=== PATIENT | female | born 1985 | race Caucasian/White ===

== ENCOUNTER 2019-11-10 16:11 | Emergency (ER) | payer BC, OTHER ==
[2019-11-10] MEDS ORDERED: DIAZEPAM 5 MG TABLET ONE (17:19)
[2019-11-10] MEDS ORDERED: dexAMETHasone 10 MG/ML VIAL ONE (17:19)
[2019-11-10] MEDS ORDERED: KETOROLAC 30 MG/ML INJ ONE (17:20)
--- NOTE | 2019-11-10 18:03 | ER ---
Nurse's Notes [facility] Name: Rossana Martin Age: 34 yrs Sex: Female : 1985 Arrival Date: 11/10/2019 Time: 16:15 Bed 27 Private MD: Andrew Johansen Diagnosis: Strain of muscle and tendon of back wall of thorax Presentation: 11/09 16:33 Chief complaint: Patient states: Began Monday with slight neck pain. Tried to work ll1 throughout the day. Severe pain to left shoulder started Monday. 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 No trauma or falls. Coronavirus screen: The patient has NOT traveled to a country currently being monitored by the [facility] within the last 14 days. Proceed with normal triage procedures. Ebola Screen: Patient denies travel to an Ebola-affected area in the 21 days before illness onset. Initial Sepsis Screen: Does the patient meet any 2 criteria? No. Patient's initial sepsis screen is negative. Does the patient have a suspected source of infection? No. Patient's initial sepsis screen is negative. Risk Assessment: Do you want to hurt yourself or someone else? Patient reports no desire to harm self or others. 16:33 Method Of Arrival: Ambulatory ll1 16:33 Acuity: KAT 4 ll1 16:38 Onset of symptoms was November 08, 2019. ll1 Triage Assessment: 16:37 General: Appears uncomfortable, Behavior is calm, cooperative. Pain: Complains of pain ll1 in right shoulder Pain currently is 8 out of 10 on a pain scale. Quality of pain is described as aching, Pain began 2-3 days ago. Is continuous. Neuro: No deficits noted. Cardiovascular: No deficits noted. Respiratory: No deficits noted. Musculoskeletal: Reports pain in right shoulder. 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 - Social history:: Smoking status: Patient denies any tobacco usage or history of. Patient/guardian denies using alcohol, street drugs, tobacco products. Screenin:36 Abuse screen: Denies threats or abuse. Nutritional screening: No deficits noted. ll1 Tuberculosis screening: No symptoms or risk factors identified. Fall Risk None identified. Total Carrillo Fall Scale indicates No Risk (0-24 pts). Assessment: 16:35 General: Appears uncomfortable, Behavior is calm, cooperative, see triage assessment ll1 for further details.. Pain: Complains of pain in right shoulder Pain currently is 8 out of 10 on a pain scale. Neuro: No deficits noted. Cardiovascular: No deficits noted. Respiratory: No deficits noted. Musculoskeletal: Circulation, motion, and sensation intact. Capillary refill < 3 seconds, Range of motion: limited in right shoulder Tenderness present in right shoulder Reports pain in right shoulder. Injury Description: none, repeated use of upper extremities at work. 17:35 Reassessment: No changes from previously documented assessment. Patient and/or family ll1 updated on plan of care and expected duration. Pain level reassessed. Patient is alert, oriented x 3, equal unlabored respirations, skin warm/dry/pink. 18:30 Reassessment: No changes from previously documented assessment. Patient and/or family ll1 updated on plan of care and expected duration. Pain level reassessed. Patient is alert, oriented x 3, equal unlabored respirations, skin warm/dry/pink. Vital Signs: 16:33 BP 155 / 98; Pulse 84; Resp 16; Temp 97.8(O); Pulse Ox 100% ; lt1 16:33 Pain 8/10; ll1 17:23 BP 126 / 77; Pulse 82; Resp 17; Pulse Ox 100% ; Pain 8/10; ll1 18:34 BP 125 / 75; Pulse 75; Resp 17; Temp 98.0; Pulse Ox 100% ; Pain 6/10; ll1 ED Course: 16:15 Patient arrived in ED. rg4 16:15 Andrew Johansen MD is Private Physician. rg4 16:28 J[facility] Hopkins NP is [facility]. pm1 16:28 Alfonso Morton MD is Attending Physician. pm1 16:28 Alysha Hood RN is Primary Nurse. ll1 16:34 Triage completed. ll1 16:38 Arm band placed on Patient placed in an exam room. ll1 16:38 Patient has correct armband on for positive identification. Bed in low position. Call ll1 light in reach. Side rails up X 1. 18:46 No provider procedures requiring assistance completed. Patient did not have IV access ll1 during this emergency room visit. Administered Medications: 17:22 Drug: Valium 5 mg Route: PO; ll1 18:20 Follow up: Response: No adverse reaction; Pain is decreased ll1 17:22 Drug: Decadron 10 mg Route: IM; Site: left vastus lateralis; ll1 18:20 Follow up: Response: No adverse reaction; Pain is decreased; RASS: Alert and Calm (0) ll1 17:22 Drug: TORadol 60 mg Route: IM; Site: right vastus lateralis; ll1 18:20 Follow up: Response: No adverse reaction; Pain is decreased; RASS: Alert and Calm (0) 1 18:33 Drug: Tylenol #3 (300 mg-30 mg) 1 tablet {Note: RASS 0.} Route: PO; ll1 18:34 Follow up: Response: No adverse reaction; RASS: Alert and Calm (0) 1 Outcome: 18:03 Discharge ordered by MD. pm1 18:35 Discharged to home ambulatory, with family. ll1 18:35 Condition: stable 18:35 Discharge instructions given to patient, Instructed on discharge instructions, follow up and referral plans. medication usage, Demonstrated understanding of instructions, follow-up care, medications, Prescriptions given X 3. 18:47 Patient left the ED. 1 Signatures: Jas Hopkins NP EDUCATION FACULTY MEMBER pm1 Alba Mccarty4 Deonna Barr lt1 Alysha Hood, RN RN 1
--- NOTE | 2019-11-10 18:03 | EDPHYS ---
Physician Documentation [facility] Name: Rossana Martin Age: 34 yrs Sex: Female : 1985 Arrival Date: 11/10/2019 Time: 16:15 Bed 27 Private MD: Andrew Johansen ED Physician Alfonso Morton HPI: 11/09 16:39 This 34 yrs old Female presents to ER via Ambulatory with complaints of Right pm1 Arm Pain, Right Shoulder Pain. 16:39 The patient or guardian complains of pain, that is acute. pm1 16:39 The complaints affect the Right trapezius and posterior aspect of right shoulder. 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 Onset: The symptoms/episode began/occurred 2 day(s) ago. Modifying factors: The symptoms are alleviated by remaining still, the symptoms are aggravated by movement. Associated signs and symptoms: Pertinent negatives: decreased range of motion, deformity, fever, nausea, numbness, tingling, vomiting. Severity of symptoms: in the emergency department the symptoms are actually worse. The patient has not experienced similar symptoms in the past. 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 - Social history:: Smoking status: Patient denies any tobacco usage or history of. Patient/guardian denies using alcohol, street drugs, tobacco products. ROS: 16:39 Constitutional: Negative for fever, chills, and weight loss, Cardiovascular: Negative pm1 for chest pain, palpitations, and edema, Respiratory: Negative for shortness of breath, cough, wheezing, and pleuritic chest pain. 16:39 Abdomen/GI: Negative for abdominal pain, nausea, vomiting, diarrhea, and constipation. 16:39 MS/Extremity: Negative for injury and deformity, Skin: Negative for injury, rash, and discoloration, Neuro: Negative for headache, weakness, numbness, tingling, and seizure. 16:39 Neck: Positive for pain with movement, tenderness, of the right trapezius, Negative for bony tenderness. 16:39 Back: Positive for pain with movement, of the right trapezius, right scapular area and right subscapular area. Exam: 16:39 Constitutional: This is a well developed, well nourished patient who is awake, alert, pm1 and in no acute distress. Head/Face: Normocephalic, atraumatic. 16:39 Chest/axilla: Normal chest wall appearance and motion. Nontender with no deformity. No lesions are appreciated. Cardiovascular: Regular rate and rhythm with a normal S1 and S2. No gallops, murmurs, or rubs. Normal PMI, no JVD. No pulse deficits. Respiratory: Lungs have equal breath sounds bilaterally, clear to auscultation and percussion. No rales, rhonchi or wheezes noted. No increased work of breathing, no retractions or nasal flaring. Abdomen/GI: Soft, non-tender, with normal bowel sounds. No distension or tympany. No guarding or rebound. No evidence of tenderness throughout. 16:39 Skin: Warm, dry with normal turgor. Normal color with no rashes, no lesions, and no evidence of cellulitis. MS/ Extremity: Pulses equal, no cyanosis. Neurovascular intact. Full, normal range of motion. 16:39 Neck: External neck: is normal, C-spine: appears grossly normal, vertebral tenderness, is not appreciated, ROM/movement: Meningeal signs: are not present, Kernig's sign is negative, Brudzinski's sign is negative. 16:39 Back: muscle spasm, is appreciated in the right trapezius, right scapular area and right subscapular area. 16:39 Neuro: Orientation: is normal, Mentation: is normal, Motor: is normal, moves all fours, Sensation: is normal, no obvious gross deficits. Vital Signs: 16:33 BP 155 / 98; Pulse 84; Resp 16; Temp 97.8(O); Pulse Ox 100% ; lt1 16:33 Pain 8/10; ll1 17:23 BP 126 / 77; Pulse 82; Resp 17; Pulse Ox 100% ; Pain 8/10; ll1 18:34 BP 125 / 75; Pulse 75; Resp 17; Temp 98.0; Pulse Ox 100% ; Pain 6/10; ll1 MDM: 16:28 Patient medically screened. pm1 18:02 Data reviewed: vital signs. Data interpreted: Pulse oximetry: on room air is 100 %. pm1 Interpretation: normal. Counseling: I had a detailed discussion with the patient and/or guardian regarding: the historical points, exam findings, and any diagnostic results supporting the discharge/admit diagnosis, the need for outpatient follow up, to return to the emergency department if symptoms worsen or persist or if there are any questions or concerns that arise at home. 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 Patient takes Ambien. Instructed patient to stop taking pm1 Ambien while she is taking the Valium for her pain. Administered Medications: 17:22 Drug: Valium 5 mg Route: PO; ll1 18:20 Follow up: Response: No adverse reaction; Pain is decreased ll1 17:22 Drug: Decadron 10 mg Route: IM; Site: left vastus lateralis; ll1 18:20 Follow up: Response: No adverse reaction; Pain is decreased; RASS: Alert and Calm (0) 1 17:22 Drug: TORadol 60 mg Route: IM; Site: right vastus lateralis; ll1 18:20 Follow up: Response: No adverse reaction; Pain is decreased; RASS: Alert and Calm (0) ll1 18:33 Drug: Tylenol #3 (300 mg-30 mg) 1 tablet {Note: RASS 0.} Route: PO; ll1 18:34 Follow up: Response: No adverse reaction; RASS: Alert and Calm (0) ll1 Disposition: 11/10 10:38 Co-signature as Attending Physician, Alfonso Morton MD I agree with the assessment and jg plan of care. Disposition: 11/10/19 18:03 Discharged to Home. Impression: Strain of muscle and tendon of back wall of thorax. - Condition is Stable. - Discharge Instructions: Muscle Strain. - Prescriptions for Naprosyn 500 mg Oral Tablet - take 1 tablet by ORAL route 2 times per day As needed take with food; 30 tablet. Valium 5 mg Oral Tablet - take 1 tablet by ORAL route every 8 hours As needed; 12 tablet. Medrol (Berhane) 4 mg Oral Tablets, Dose Pack - take 1 tablet by ORAL route as directed - follow package instructions; 1 packet. - Work release form, Medication Reconciliation Form, Thank You Letter, Antibiotic Education, Prescription Opioid Use form. - Follow up: Emergency Department; When: As needed; Reason: Worsening of condition. Follow up: Private Physician; When: 2 - 3 days; Reason: Recheck today's complaints, Continuance of care, Re-evaluation by your physician. - Problem is new. - Symptoms have improved. Signatures: Alfonso Morton MD MD cha Marinas, Patrick AGRICULTURAL PURCHASING AGENT AGRICULTURAL PURCHASING AGENT pm1 Alysha Hood RN RN ll1 Corrections: (The following items were deleted from the chart) 11/09 18:47 18:03 11/10/2019 18:03 Discharged to Home. Impression: Strain of muscle and tendon of ll1 back wall of thorax. Condition is Stable. Forms are Medication Reconciliation Form, Thank You Letter, Antibiotic Education, Prescription Opioid Use. Follow up: Emergency Department; When: As needed; Reason: Worsening of condition. Follow up: Private Physician; When: 2 - 3 days; Reason: Recheck today's complaints, Continuance of care, Re-evaluation by your physician. Problem is new. Symptoms have improved. pm1
[2019-11-10] MEDS ORDERED: CODEINE 30MG/APAP 300MG TAB ONE (18:34)
[2019-11-10 18:55] VITALS: O2SAT 100
[2019-11-10 18:59] VITALS: BP 125/75; TEMP 98
== END 2019-11-10 18:47 | disposition home or self-care (01) ==
LOC: ER 16:11
DX: S29.012A Strain of muscle and tendon of back wall of thorax, initial encounter (principal); X58.XXXA Exposure to other specified factors, initial encounter; Y93.89 Activity, other specified; Y92.89 Other specified places as the place of occurrence of the external cause; Y99.8 Other external cause status
CPT/HCPCS: 96372; 99283; J1100

== ENCOUNTER 2021-10-02 18:45 | Emergency (ER) | payer BC, SELFPAY ==
[2021-10-02 19:39] LABS: Urine Blood Negative (Negative); Urine Glucose Negative (Negative); Urine Protein Negative (Negative); Urine Specific Gravity 1.025 (1.005-1.030)
[2021-10-02 19:59] LABS: Absolute Lymphocytes (CBC) 1.9 K/uL (0.7-4.9); Hematocrit 40.4 % (36.0-45.0); Lymphocytes % 23.9 % (15.3-44.8); MPV 8.4 fL (7.6-11.3); RBC Red Blood Cell Count 4.67 M/uL (3.86-4.86)
[2021-10-02 20:13] LABS: BUN Blood Urea Nitrogen 11 mg/dL (7-18); Bicarbonate 25 mmol/L (21-32); Glucose Level 95 mg/dL (74-106); Potassium 3.7 mmol/L (3.5-5.1); Sodium Level 138 mmol/L (136-145)
[2021-10-02 20:25] LABS: Urine Specific Gravity/Preg 1.025 (1.005-1.030)
[2021-10-02 20:25] LABS: HCG, Quantitative < 1 mIU/mL (1-3)
--- NOTE | 2021-10-02 20:48 | ER ---
Nurse's Notes [facility] Name: Rossana Martin Age: 36 yrs Sex: Female : 1985 Arrival Date: 10/02/2021 Time: 18:49 Bed 14 Private MD: Diagnosis: Encounter for test, result negative Presentation: 10/02 19:12 Chief complaint: Patient states: missed mensural cycle since march. now feeling lg3 movement in lower abdomen. Coronavirus screen: Vaccine status: Patient reports being unvaccinated. Client denies travel out of the [place] in the last 14 days. At this time, the client does not indicate any symptoms associated with coronavirus-19. Ebola Screen: No symptoms or risks identified at this time. Initial Sepsis Screen: Does the patient meet any 2 criteria? No. Patient's initial sepsis screen is negative. Does the patient have a suspected source of infection? No. Patient's initial sepsis screen is negative. Risk Assessment: Do you want to hurt yourself or someone else? Patient reports no desire to harm self or others. Onset of symptoms was March 28, 2022. 19:12 Method Of Arrival: Ambulatory lg3 19:12 Acuity: KAT 5 lg3 Triage Assessment: 19:14 General: Appears in no apparent distress. comfortable, Behavior is calm, cooperative. lg3 Pain: Denies pain. EENT: No deficits noted. No signs and/or symptoms were reported regarding the EENT system. Neuro: No deficits noted. Level of Consciousness is awake, alert, obeys commands, Oriented to person, place, time, situation, Gait is steady, Speech is normal. Cardiovascular: No deficits noted. Capillary refill < 3 seconds JVD is absent Patient's skin is warm and dry. Respiratory: No deficits noted. Airway is patent Trachea midline Respiratory effort is even, unlabored, Respiratory pattern is regular, symmetrical. GI: Abdomen is round non-distended, Bowel sounds present X 4 quads. : No deficits noted. Derm: No deficits noted. No signs and/or symptoms reported regarding the dermatologic system. Skin is intact, is healthy with good turgor, Skin is dry. Musculoskeletal: No deficits noted. No signs and/or symptoms reported regarding the musculoskeletal system. Circulation, motion, and sensation intact. Range of motion: intact in all extremities. 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 - Social history:: Smoking status: Patient denies any tobacco usage or history of. Patient/guardian denies using alcohol. Screenin:17 Abuse screen: Denies threats or abuse. Nutritional screening: No deficits noted. lg3 Tuberculosis screening: No symptoms or risk factors identified. Fall Risk None identified. Assessment: 19:17 General: see triage assessment . lg3 Vital Signs: 19:12 BP 149 / 91; Pulse 100; Resp 18 S; Temp 98.4(O); Pulse Ox 100% on R/A; Weight 99.79 kg lg3 (R); Height 5 ft. 7 in. (170.18 cm) (R); Pain 0/10; 19:12 Body Mass Index 34.46 (99.79 kg, 170.18 cm) lg3 ED Course: 18:49 Patient arrived in ED. jj6 18:59 Alfonso Gonzalez PA is PHCP. cp 18:59 Chase Mendoza MD is Attending Physician. cp 19:11 mE Harris, DARINEL is Primary Nurse. lg3 19:14 Triage completed. lg3 19:14 Arm band placed on left wrist. lg3 19:17 Patient has correct armband on for positive identification. Bed in low position. Call lg3 light in reach. Side rails up X 1. 19:40 Abo/rh Typing Sent. lg3 19:40 Basic Metabolic Panel Sent. lg3 19:40 CBC with Diff Sent. lg3 19:40 Quantitative Hcg Sent. lg3 19:40 Urine Microscopic Only Sent. lg3 19:41 Inserted saline lock: 20 gauge in right antecubital area, using aseptic technique. lg3 Blood collected. 20:52 No provider procedures requiring assistance completed. IV discontinued, intact, lg3 bleeding controlled, No redness/swelling at site. Pressure dressing applied. Administered Medications: No medications were administered Outcome: 20:48 Discharge ordered by . cp 20:52 Discharged to home ambulatory. lg3 20:52 Condition: good 20:52 Discharge instructions given to patient, Instructed on discharge instructions. 20:52 Patient left the ED. lg3 Signatures: Alfonso Gonzalez PA PA cp Gibson, Lacie, RN RN lg3 Krista Schultz jj6 Corrections: (The following items were deleted from the chart) 19:15 19:14 PSHx: None; lg3 lg3
--- NOTE | 2021-10-02 20:48 | EDPHYS ---
Physician Documentation [facility] Name: Rossana Martin Age: 36 yrs Sex: Female : 1985 Arrival Date: 10/02/2021 Time: 18:49 Bed 14 Private MD: ED Physician Chase Mendoza HPI: 10/02 19:25 This 36 yrs old Female presents to ER via Ambulatory with complaints of MISSED cp MENUSTRATION, FATIGUE,. 19:25 The patient presents to the emergency department with possible . cp 19:25 Associated signs and symptoms: Pertinent positives: irregular menstrual cycle. cp 19:30 Patient reports she feels movement in her abdomen that responds to voice of significant cp other. 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 - Social history:: Smoking status: Patient denies any tobacco usage or history of. Patient/guardian denies using alcohol. ROS: 19:30 : Positive for menstrual abnormality, Negative for urinary symptoms. cp 19:30 Constitutional: Negative for fever. cp 19:30 Cardiovascular: Negative for chest pain. 19:30 Respiratory: Negative for cough, shortness of breath, wheezing. 19:30 Abdomen/GI: Negative for abdominal pain, nausea, vomiting, and diarrhea. 19:30 All other systems are negative. Exam: 19:35 Constitutional: The patient appears in no acute distress, alert, awake, non-toxic, well cp developed, well nourished, overweight 19:35 Head/Face: Normocephalic, atraumatic. cp 19:35 Eyes: Periorbital structures: appear normal, Conjunctiva: normal, no exudate, no injection, Lids and lashes: appear normal, bilaterally. 19:35 ENT: External ear(s): are unremarkable, Nose: is normal, Mouth: Lips: moist, Posterior pharynx: Airway: no evidence of obstruction, patent. 19:35 Chest/axilla: Inspection: normal. 19:35 Cardiovascular: Rate: tachycardic, Rhythm: regular, Edema: is not appreciated, JVD: is not appreciated. 19:35 Respiratory: the patient does not display signs of respiratory distress, Respirations: normal, no use of accessory muscles, no retractions, Breath sounds: are clear throughout, no decreased breath sounds. 19:35 Abdomen/GI: Inspection: abdomen appears normal, Bowel sounds: active, all quadrants, Palpation: abdomen is soft and non-tender, in all quadrants. 19:35 Back: pain, is absent, ROM is normal. Vital Signs: 19:12 BP 149 / 91; Pulse 100; Resp 18 S; Temp 98.4(O); Pulse Ox 100% on R/A; Weight 99.79 kg lg3 (R); Height 5 ft. 7 in. (170.18 cm) (R); Pain 0/10; 19:12 Body Mass Index 34.46 (99.79 kg, 170.18 cm) lg3 MDM: 19:01 Patient medically screened. cp 20:47 Data reviewed: vital signs, nurses notes, lab test result(s). cp 20:47 Counseling: I had a detailed discussion with the patient and/or guardian regarding: the cp historical points, exam findings, and any diagnostic results supporting the discharge/admit diagnosis, lab results. ED course: VSS. Serum and urine test negative. Discussed these results with patient. Blood work reviewed and unremarkable. Patient declined any further testing at this time and request discharge to home. 10/02 19:19 Order name: Urine Microscopic Only cp 10/02 19:19 Order name: Abo/rh Typing; Complete Time: 20:16 cp 10/02 19:19 Order name: Basic Metabolic Panel; Complete Time: 20:41 cp 10/02 19:19 Order name: CBC with Diff; Complete Time: 20:16 cp 10/02 20:16 Interpretation: Reviewed. cp 10/02 19:19 Order name: Quantitative Hcg; Complete Time: 20:41 cp 10/02 20:41 Interpretation: HCGQ < 1; Reviewed. cp 10/02 19:39 Order name: Urine Dipstick-Ancillary; Complete Time: 20:16 EDMS 10/02 19:19 Order name: Urine Dipstick-Ancillary (obtain specimen); Complete Time: 19:40 cp 10/02 19:19 Order name: Urine Test (obtain specimen); Complete Time: 19:40 cp 10/02 19:19 Order name: IV Saline Lock; Complete Time: 19:40 cp 10/02 19:19 Order name: Labs collected and sent; Complete Time: 19:40 cp 10/02 19:19 Order name: NPO; Complete Time: 19:40 cp 10/02 19:40 Order name: Urine --Ancillary (enter results); Complete Time: 20:41 mw2 Administered Medications: No medications were administered Disposition: 21:00 Chart complete. cp 10/03 06:55 Co-signature as Attending Physician, Chase Mendoza MD. rn Disposition Summary: 10/02/21 20:48 Discharge Ordered Location: Home cp Problem: new cp Symptoms: are unchanged cp Condition: Stable cp Diagnosis - Encounter for test, result negative cp Followup: cp - With: Private Physician - When: 1 - 2 days - Reason: Recheck today's complaints Forms: - Medication Reconciliation Form cp - Thank You Letter cp - Antibiotic Education cp - Prescription Opioid Use cp Signatures: Dispatcher [employer] EDChase Luis MD MD rn Alfonso Gonzalez PA PA cp Em Harris, RN RN lg3 Corrections: (The following items were deleted from the chart) 10/02 19:15 19:14 PSHx: None; lg3 lg3 20:47 19:50 : Positive for menstrual abnormality, cp cp
[2021-10-02 21:20] VITALS: BP 149/91; TEMP 98.4; O2SAT 100
[2021-10-02 21:23] LABS: Urine Amorphous Sediment 1+ /HPF (NONE SEEN); Urine Bacteria <20 /HPF (<20); Urine Mucus 3+ /HPF (NONE SEEN); Urine RBC <5 /HPF (NONE SEEN)
== END 2021-10-02 20:52 | disposition home or self-care (01) ==
LOC: ER 18:45
DX: Z32.02 Encounter for pregnancy test, result negative (principal)
CPT/HCPCS: 36415; 80048; 81003; 81015; 81025; 84702; 85025; 86900; 86901; 99283

== ENCOUNTER 2022-04-20 21:49 | Inpatient (IN) | payer OTHER, SELFPAY ==
--- OUTSIDE RECORDS SUMMARY | 2022-04-20 21:53 | XMS REPORT | Continuity of Care Document ---
:[address] [facility] t Address [address] [place] [address] Care Team Providers Name Role Phone Pcp, Patient Does Not Have A Primary Care Physician [id number] Milagros MANJARREZ Attending Clinician Unavailable Milagros Lugo Attending Clinician Problems This patient has no known problems. Allergies, Adverse Reactions, Alerts Allergy Allergy Status Severity Reaction(s) Onset Inactive Treating Comm ents Source Name Type Date Date Clinician NO KNOWN Drug Active Univers ALLERGIE Class ity of S [facility] Social History Social Habit Start Date Stop Date Quantity Comments Source Exposure to Unable to assess Univers ity of SARS-CoV-2 [facility] (event) [place] Sex Assigned At [birth year] [facility] 00:00:00 00:00:00 [facility] Smoking Status Start Date Stop Date Source [facility] Medications This patient has no known medications. Vital Signs Vital Name Observation Time Observation Value Comments Source Systolic blood 2021-10-08 154 mm[Hg] pt educated on University pressure 20:22:00 BP follow up [facility] Diastolic blood 2021-10-08 95 mm[Hg] pt educated on [facility] pressure 20:22:00 BP follow up [facility] Heart rate 2021-10-08 86 /min [facility] 20:22:00 [facility] Respiratory rate 2021-10-08 16 /min [facility] 20:22:00 [facility] Oxygen saturation 2021-10-08 99 /min [facility] Arterial blood 20:22:00 [facility] by Pulse oximetry Branch Body temperature 2021-10-08 37.06 Beckie [facility] 17:50:00 [facility] Body weight 2021-10-08 99.791 kg [facility] 17:50:00 [facility] Procedures Procedure Date / Time Performed Performing Clinician Yuriy perkins POCT TEST 2021-10-08 17:56:00 Isauro Shipley ty of [facility] URINALYSIS 2021-10-08 17:55:00 Isauro Shipley o f [facility] NOTICE OF PRIVACY 2021-10-08 17:46:33 Doctor Unassigned, No [facility] PRACTICES Name [facility] CONSENT/REFUSAL FOR 2021-10-08 17:46:18 [facility] Name [facility] TREATMENT Encounters Start End Encounter Admission Attending Care Care Encounter Source Date/Time Date/Time Type Type Clinicians Facility Department ID 2021-10-08 2021-10-08 Emergency X Milagros MANJARREZ [facility] ERT [id number] 1941 [facility] 11:57:00 15:09:00 ity of [facility] 2021-10-08 2021-10-08 Emergency Milagros Manjarrez [facility] [id number] Univers 11:57:00 15:09:00 Marimar PATEL [id number] i [facility] [id number] [facility] [id number] [facility] 084 Branch Results Test Description Test Time Test Comments Results Result Comments Source POCT TEST 2021-10-08 17:56:00 Test Item Value Reference Range Interpretation Comme nts POCT PREG (test code = 1605) negative On board controls acceptable with C Line (test code = 3574) present POCT PREG LOT # (test code = 3575) [id number] POCT PREG TEST DATE (test code = 3576) Lab Interpretation (test code = 60250-5) Normal [facility]
[2022-04-20] MEDS ORDERED: ONDANSETRON 4 MG/2 ML VIAL ONE (23:03)
[2022-04-20] MEDS ORDERED: NA CHLORIDE 0.9% 1,000 ML ONE (23:03)
[2022-04-20 23:18] LABS: Absolute Lymphocytes (CBC) 1.4 K/uL (0.7-4.9); Hematocrit 41.7 % (36.0-45.0); Lymphocytes % 5.3 % (15.3-44.8); MCV 86.2 fL (80-100); MPV 7.8 fL (7.6-11.3); RBC Red Blood Cell Count 4.84 M/uL (3.86-4.86)
[2022-04-20 23:28] LABS: Urine Blood 2+ (Negative); Urine Glucose Negative (Negative); Urine Protein 2+ (Negative)
[2022-04-20 23:41] LABS: Albumin 3.3 g/dL (3.4-5.0); Bilirubin Total 0.7 mg/dL (0.2-1.0); Potassium 3.4 mmol/L (3.5-5.1); Protein, Total 8.2 g/dL (6.4-8.2)
[2022-04-21 00:11] LABS: Blood Morphology Comment NOT SEEN (NOT SEEN); Platelet Estimate ADEQ
[2022-04-21 00:14] LABS: Urine Bacteria 20-50 /HPF (<20)
[2022-04-21 00:15] LABS: Urine RBC None Seen /HPF (None Seen)
[2022-04-21] MEDS ORDERED: CEFTRIAXONE 1000 MG/VIAL ONE ×2 (00:33→08:36)
--- NOTE | 2022-04-21 01:12 | ER ---
Nurse's Notes [facility] Name: Rossana Martin Age: 36 yrs Sex: Female : 1985 Arrival Date: 04/20/2022 Time: 21:52 Bed 16 Private MD: Diagnosis: Pyelonephritis acute;Elevated white blood cell count;Acute cystitis;Bandemia Presentation: 04/20 22:03 Chief complaint: Patient states: I started having symptoms of a UTI five days and I bm7 thought I was getting better but today it really hurts. I have a tooth that's cracked and I have been taking a lot of Ibuprofen too. Coronavirus screen: At this time, the client does not indicate any symptoms associated with coronavirus-19. Ebola Screen: No symptoms or risks identified at this time. Initial Sepsis Screen: Does the patient meet any 2 criteria? No. Patient's initial sepsis screen is negative. Does the patient have a suspected source of infection? Yes: Dysuria/Frequency/Urgency/UTI. Risk Assessment: Do you want to hurt yourself or someone else? Patient reports no desire to harm self or others. Onset of symptoms was April 18, 2022. Care prior to arrival: None. 22:03 Method Of Arrival: Wheelchair bm7 22:03 Acuity: KAT 3 bm7 Triage Assessment: 22:05 General: Appears in no apparent distress. uncomfortable, Behavior is calm, cooperative. bm7 Pain: Complains of pain in suprapubic area Pain radiates to back. EENT: No deficits noted. No signs and/or symptoms were reported regarding the EENT system. Neuro: No deficits noted. Cardiovascular: No deficits noted. Respiratory: No deficits noted. GI: Abdomen is tender to palpation in suprapubic area Reports cramping, nausea, Patient currently denies vomiting. : Reports burning with urination, cramping, inability to void, urinary frequency. Derm: No deficits noted. No signs and/or symptoms reported regarding the dermatologic system. Musculoskeletal: No deficits noted. No signs and/or symptoms reported regarding the musculoskeletal system. 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 - Social history:: Smoking status: Patient denies any tobacco usage or history of. Patient/guardian denies using alcohol. Screenin:19 Abuse screen: Denies threats or abuse. Denies injuries from another. Nutritional aa9 screening: No deficits noted. Tuberculosis screening: No symptoms or risk factors identified. Fall Risk None identified. Assessment: 22:35 General: Appears distressed, uncomfortable, Behavior is cooperative, anxious, restless. aa9 Pain: Complains of pain in suprapubic area Pain currently is 7 out of 10 on a pain scale. Quality of pain is described as pressure Is continuous. : Reports burning with urination, urgency, urinary frequency, dark urine output. 22:38 GI: Bowel sounds present X 4 quads. aa9 23:12 Reassessment: pt c/o dry mouth, provided water. aa9 04/21 00:20 Reassessment: Patient low mesa's in bed. breathing equal and unlabored. at aa9 bedside. Await[address] results. 01:20 Reassessment: Pt ambulated to restroom, understands care plan. aa9 02:06 Reassessment: pt transferred from stretcher to hospital bed for comfort measures. aa9 02:32 Pain: Complains of pain in abdomen and suprapubic area Pain currently is 8 out of 10 on kd3 a pain scale. 02:32 General: Appears uncomfortable, Behavior is calm, cooperative. Neuro: Level of kd3 Consciousness is awake, alert, obeys commands, Oriented to person, place, time, situation. Respiratory: Airway is patent. Vital Signs: 04/20 22:02 BP 111 / 74; Pulse 94; Resp 20; Temp 97.7(TE); Pulse Ox 98% on R/A; Weight 99.79 kg bm7 (R); Height 5 ft. 7 in. (170.18 cm); Pain 7/10; 22:37 BP 82 / 60; Pulse 105; Resp 16 S; Temp 98(O); Pulse Ox 100% on R/A; Pain 7/10; aa9 23:22 BP 122 / 61; Pulse 98; Resp 16 S; Pulse Ox 100% on R/A; aa9 04/21 00:13 BP 124 / 77; Pulse 97; Resp 16 S; Pulse Ox 98% on R/A; aa9 01:19 BP 131 / 77; Pulse 89; Resp 16 S; Temp 99.3(O); Pulse Ox 100% on R/A; aa9 02:41 BP 118 / 65; Pulse 91; Resp 16; Pulse Ox 97% on R/A; kd3 06:56 BP 141 / 79; Pulse 80; Resp 16 S; Pulse Ox 100% on R/A; aa9 04/20 22:02 Body Mass Index 34.46 (99.79 kg, 170.18 cm) bm7 ED Course: 04/20 21:52 Patient arrived in ED. bp1 22:05 Triage completed. bm7 22:05 Arm band placed on right wrist. bm7 22:14 Michelle Paz FNP-C is PHCP. kb 22:14 Alfonso Morton MD is Attending Physician. kb 22:19 Patient has correct armband on for positive identification. aa9 23:07 Inserted saline lock: 20 gauge in left antecubital area, using aseptic technique. Blood aa9 collected. 23:35 Rochelle Henderson, RN is Primary Nurse. aa9 23:35 Urine Microscopic Only Sent. aa9 04/21 00:22 CT Abd/Pelvis - IV Contrast Only In Process Unspecified. EDMS 01:10 Allan Lainez is Hospitalizing Provider. jg 02:07 No provider procedures requiring assistance completed. aa9 07:18 SARS RAPID Sent. kc6 Administered Medications: 04/20 23:07 Drug: NS 0.9% 1000 ml Route: IV; Rate: 1 bolus; Site: left antecubital; aa9 04/21 02:42 Follow up: Rate change 1000 ml; IV Status: Completed infusion kd3 04/20 23:07 Drug: Zofran (Ondansetron) 4 mg Route: IVP; Site: left antecubital; aa9 04/21 00:22 Follow up: Response: No adverse reaction aa9 00:30 Drug: Rocephin (cefTRIAXone) 1 grams Route: IV; Rate: calculated rate; Site: left aa9 antecubital; 02:42 Follow up: Rate change 10 ml; IV Status: Completed infusion kd3 01:24 Drug: levofloxacin 500 mg Volume: 100 ml; Route: IVPB; Infused Over: 60 mins; Site: aa9 left antecubital; 02:41 Follow up: Rate change 100 ml; IV Status: Completed infusion kd3 02:33 Drug: morphine 4 mg Route: IVP; Infused Over: 4 mins; Site: left antecubital; kd3 02:42 Follow up: Response: No adverse reaction; Pain is decreased kd3 Medication: 02:07 VIS not applicable for this client. aa9 Outcome: 01:11 Decision to Hospitalize by Provider. [facility] 11:50 Patient left the ED. aa5 Signatures: Dispatcher [employer] EDMS Michelle Paz, PHARMACY TECHNICIAN PROGRAM DIRECTOR-C PHARMACY TECHNICIAN PROGRAM DIRECTOR-Ckb Alfonso Morton MD MD cha Calderon, Audri, RN RN aa5 Marlys Amador Brittany, RN RN bm7 Aviva Vilchis RN RN kd3 Rochelle Henderson RN RN aa9 Tomasa Luo kc6 Corrections: (The following items were deleted from the chart) 04/20 22:06 22:05 PMHx: monitoring her thyroid; bm7 bm7 22:37 22:19 GI: aa9 04/21 00:22 00:20 Reassessment: Patient low mesa's in bed. breathing equal and unlabored. aa9 at bedside. Awaiting CAT results. 9 01:24 01:19 BP 131 / 77; Pulse 89bpm; Pulse Ox 100% RA; aa9 9
--- NOTE | 2022-04-21 01:12 | EDPHYS ---
Physician Documentation [facility] Name: Rossana Martin Age: 36 yrs Sex: Female : 1985 Arrival Date: 04/20/2022 Time: 21:52 Bed 16 Private MD: ED Physician Alfonso Morton HPI: 04/21 00:14 This 36 yrs old Female presents to ER via Wheelchair with complaints of Abdominal Pain, kb Decreased Appetite. 00:15 The patient presents with urinary symptoms, dysuria, frequency, urgency. Onset: The kb symptoms/episode began/occurred 5 day(s) ago. Modifying factors: The symptoms are alleviated by nothing, the symptoms are aggravated by urinating. Associated signs and symptoms: Pertinent positives: dysuria, urinary frequency, urgency, Pertinent negatives: fever. Severity of symptoms: At their worst the symptoms were moderate, in the emergency department the symptoms are unchanged. The patient has experienced similar episodes in the past, a few times. The patient has not recently seen a physician. Pt reports she developed urinary urgency and frequency 5 days ago. She thought it was early enough to drink cranberry juice to get rid of it, but symptoms have gotten worse. States she has been taking a lot of ibuprofen for a cracked tooth so she is concerned that it made her urinary symptoms worse. . 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 - Social history:: Smoking status: Patient denies any tobacco usage or history of. Patient/guardian denies using alcohol. ROS: 04/21 00:13 Respiratory: Negative for shortness of breath, cough, wheezing, and pleuritic chest kb pain. Constitutional: Positive for fatigue, malaise, poor PO intake. : Positive for urinary symptoms, urinary frequency, small amounts, burning with urination. All other systems are negative. Exam: 00:13 Constitutional: This is a well developed, well nourished patient who is awake, alert, kb and in no acute distress. Head/Face: Normocephalic, atraumatic. ENT: Moist Mucous membranes Cardiovascular: Regular rate and rhythm with a normal S1 and S2. No gallops, murmurs, or rubs. No pulse deficits. Respiratory: Respirations even and unlabored. No increased work of breathing. Talking in full sentences Abdomen/GI: Soft, non-tender. No distention Skin: Warm, dry with normal turgor. Normal color. MS/ Extremity: Pulses equal, no cyanosis. Neurovascular intact. Full, normal range of motion. Neuro: Awake and alert, GCS 15, oriented to person, place, time, and situation. Moves all extremities. Normal gait. Psych: Awake, alert, with orientation to person, place and time. Behavior, mood, and affect are within normal limits. Vital Signs: 04/20 22:02 BP 111 / 74; Pulse 94; Resp 20; Temp 97.7(TE); Pulse Ox 98% on R/A; Weight 99.79 kg bm7 (R); Height 5 ft. 7 in. (170.18 cm); Pain 7/10; 22:37 BP 82 / 60; Pulse 105; Resp 16 S; Temp 98(O); Pulse Ox 100% on R/A; Pain 7/10; aa9 23:22 BP 122 / 61; Pulse 98; Resp 16 S; Pulse Ox 100% on R/A; aa9 04/21 00:13 BP 124 / 77; Pulse 97; Resp 16 S; Pulse Ox 98% on R/A; aa9 01:19 BP 131 / 77; Pulse 89; Resp 16 S; Temp 99.3(O); Pulse Ox 100% on R/A; aa9 02:41 BP 118 / 65; Pulse 91; Resp 16; Pulse Ox 97% on R/A; kd3 06:56 BP 141 / 79; Pulse 80; Resp 16 S; Pulse Ox 100% on R/A; aa9 04/20 22:02 Body Mass Index 34.46 (99.79 kg, 170.18 cm) bm7 MDM: 04/20 22:14 Patient medically screened. kb 04/21 00:12 Data reviewed: vital signs, nurses notes. Data interpreted: Pulse oximetry: on room air kb is 100 %. Interpretation: normal. 00:49 Transition of care: After a detail discussion of the patient's case, care is kb transferred to Alfonso Morton MD. 04/20 22:15 Order name: Urine Microscopic Only; Complete Time: 00:19 kb 04/20 22:30 Order name: CBC with Diff; Complete Time: 00:12 kb 04/20 22:30 Order name: CMP; Complete Time: 23:48 kb 04/20 22:30 Order name: Lipase; Complete Time: 23:48 kb 04/20 23:21 Order name: Manual Differential; Complete Time: 00:12 EDMS 04/20 23:29 Order name: Urine Dipstick-Ancillary; Complete Time: 23:29 EDMS 04/20 23:31 Order name: Urine --Ancillary (enter results); Complete Time: 00:19 2 04/21 00:24 Order name: Urine Culture EDPR 04/21 05:32 Order name: CBC with Automated Diff; Complete Time: 07:07 EDMS 04/21 05:35 Order name: Basic Metabolic Panel; Complete Time: 07:07 EDMS 04/21 05:35 Order name: Phosphorus; Complete Time: 07:07 EDMS 04/21 05:35 Order name: Magnesium; Complete Time: 07:07 EDMS 04/21 07:07 Order name: SARS RAPID [facility] 04/21 07:36 Order name: SARS-COV-2 Antigen Rapid [facility] 04/20 22:15 Order name: Urine Dipstick-Ancillary (obtain specimen); Complete Time: 23:35 kb 04/20 22:15 Order name: Urine Test (obtain specimen); Complete Time: 23:35 kb 04/20 23:30 Order name: CT Abd/Pelvis - IV Contrast Only 04/21 08:36 Order name: RAD EDPR 04/21 09:12 Order name: Lactate EDPR 04/21 09:28 Order name: Protime (+INR) EDPR 04/21 09:28 Order name: PTT, Activated Partial Thromb EDPR 04/21 09:42 Order name: Liver (Hepatic) Function EDPR 04/21 09:42 Order name: Amylase EDPR 04/21 09:42 Order name: Lipase EDMS 04/21 09:50 Order name: Basic Metabolic Panel EDPR 04/20 22:30 Order name: IV Saline Lock; Complete Time: 23:07 kb 04/20 22:30 Order name: Labs collected and sent; Complete Time: 23:07 kb Administered Medications: 04/20 23:07 Drug: NS 0.9% 1000 ml Route: IV; Rate: 1 bolus; Site: left antecubital; aa9 04/21 02:42 Follow up: Rate change 1000 ml; IV Status: Completed infusion kd3 04/20 23:07 Drug: Zofran (Ondansetron) 4 mg Route: IVP; Site: left antecubital; aa9 04/21 00:22 Follow up: Response: No adverse reaction 9 00:30 Drug: Rocephin (cefTRIAXone) 1 grams Route: IV; Rate: calculated rate; Site: left aa9 antecubital; 02:42 Follow up: Rate change 10 ml; IV Status: Completed infusion kd3 01:24 Drug: levofloxacin 500 mg Volume: 100 ml; Route: IVPB; Infused Over: 60 mins; Site: aa9 left antecubital; 02:41 Follow up: Rate change 100 ml; IV Status: Completed infusion kd3 02:33 Drug: morphine 4 mg Route: IVP; Infused Over: 4 mins; Site: left antecubital; kd3 02:42 Follow up: Response: No adverse reaction; Pain is decreased kd3 Disposition Summary: 04/21/22 01:11 Hospitalization Ordered Hospitalization Status: Inpatient Admission jg Provider: Allan Lainez cha Condition: Stable jg Problem: new jg Symptoms: have improved jg Bed/Room Type: Standard jg Location: [facility](04/21/22 10:37) dw Room Assignment: [facility]-(04/21/22 10:37) Diagnosis - Pyelonephritis acute jg - Elevated white blood cell count jg - Acute cystitis jg - Bandemia jg Forms: - Medication Reconciliation Form jg - SBAR form jg Signatures: Dispatcher [employer] Michelle Kumari FNP-Brenda BALDERRAMAP-Lacey Ferreira RN RN Alfonso Trujillo MD MD cha Basinger, Emily RN RN eb1 Marlys Kunz, DARINEL RN keanu7 Aviva Vilchis RN RN kd3 Dania Amador PA PA sb3 Rochelle Henderson RN RN aa9 Corrections: (The following items were deleted from the chart) 04/20 22:06 22:05 PMHx: monitoring her thyroid; bm7 bm7 04/21 01:25 01:11 Telemetry/MedSurg (Inpatient) jg eb1 01:25 01:11 jg eb1 10:37 01:25 BR ER HOLD eb1 dw 10:37 01:25 ERHOLD- eb1 dw
[2022-04-21] MEDS ORDERED: Levofloxacin500mg IV 500 MG/100 ML BAG IV ONE (01:25)
[2022-04-21] MEDS ORDERED: MORPHINE 4 MG/ML SYR ONE (02:40)
--- NOTE | 2022-04-21 02:48 | P.HP ---
Certification for Inpatient Patient admitted to: Inpatient With expected LOS: <2 Midnights Patient will require the following post-hospital care: None Practitioner: I am a practitioner with admitting privileges, knowledge of patient current condition, hospital course, and medical plan of care. Services: Services provided to patient in accordance with Admission requirements found in Title 42 Section 412.3 of the Code of Federal Regulations Patient History Date of Service: 04/21/22 Reason for admission: Pyelonephritis History of Present Illness: Patient is a 36 year-old female who presented to the ED with complaints of UTI symptoms x 5 days. Labs are significant for WBC 26.2, neutrophils, 87 segs, 3 bands, urine + for UTI, sodium 132, potassium 3.4. CT abd/pelv showed "wedge shaped hypodensities in the left renal cortex with diffuse left perinephritic fat stranding and pelvic urothelial enhancement. Circumfrential wall thickening of the urinary bladder. 2.1 benign appearing right ovarian corpus luteal cyst." She was given 1L fluid, morphine, zofran, rocephin, and levaquin in the ED. Patient is admitted for further evaluation and treatment. Home medications list reviewed: Yes (NA) - Past Medical/Surgical History Diabetic: No -: Depression -: Insomnia -: Tubal ligation Psychosocial/ Personal History: Patient lives at home with her significant other - Social History Smoking Status: Never smoker Alcohol use: No CD- Drugs: No Caffeine use: Yes Place of Residence: Home Review of Systems Genitourinary: Dysuria, Frequency, Urgency Physical Examination - Physical Exam General: Alert, In no apparent distress HEENT: Atraumatic, PERRLA, EOMI, Sclerae nonicteric Neck: Supple, 2+ carotid pulse no bruit, No LAD, Without JVD or thyroid abnormality Respiratory: Clear to auscultation bilaterally, Normal air movement Cardiovascular: Regular rate/rhythm, Normal S1 S2 Gastrointestinal: Normal bowel sounds, No tenderness Musculoskeletal: No tenderness Integumentary: No rashes Neurological: Normal speech, Normal strength at 5/5 x4 extr, Normal tone, Normal affect - Studies Laboratory Data (last 24 hrs) 04/20/22 23:00: Sodium 132 L, Potassium 3.4 L, BUN 11, Creatinine 0.90, Glucose 115 H, Total Bilirubin 0.7, AST 12 L, ALT 20, Alkaline Phosphatase 78, Lipase 48 L 04/20/22 23:00: WBC 26.20 H*, Hgb 14.3, Hct 41.7, Plt Count 291 Assessment and Plan - Problems (Diagnosis) (1) Pyelonephritis Current Visit: Yes Status: Acute (2) Leukocytosis Current Visit: Yes Status: Acute Qualifiers: Leukocytosis type: bandemia Qualified Code(s): D72.825 - Bandemia (3) Hypokalemia Current Visit: Yes Status: Acute - Plan -Continue antibiotics and IV fluids -Pain control and antiemetics PRN -Monitor and replete electrolytes per protocol -Reconcile and continue home medications -Lovenox for VTE ppx -Full code Discharge Plan: Home Plan to discharge in: 48 Hours - Advance Directives Does patient have a Living Will: No Does patient have a Durable POA for Healthcare: No - Code Status/Comfort Care Code Status Assessed: Yes (Full) Critical Care: No Time Spent Managing Pts Care (In Minutes): 50
[2022-04-21] MEDS ORDERED: ACETAMINOPHEN 500 MG TAB PO PRN (04:50)
[2022-04-21] MEDS: NA CHLORIDE 0.9% 1,000 ML IV SCH ×3 (04:50→23:21)
[2022-04-21] MEDS ORDERED: ONDANSETRON 4 MG/2 ML VIAL IV PRN (04:50)
[2022-04-21 04:59] VITALS: BMI 34.4
[2022-04-21 05:20] LABS: Absolute Lymphocytes (CBC) 1.9 K/uL (0.7-4.9); Hematocrit 36.7 % (36.0-45.0); Lymphocytes % 7.7 % (15.3-44.8); MCV 86.6 fL (80-100); MPV 7.9 fL (7.6-11.3); RBC Red Blood Cell Count 4.24 M/uL (3.86-4.86)
[2022-04-21 05:35] LABS: Phosphorus 1.9 mg/dL (2.5-4.9); Potassium 3.8 mmol/L (3.5-5.1)
[2022-04-21] MEDS ORDERED: NA CHLORIDE 0.9% 1,000 ML ONE ×2 (06:54→08:37)
[2022-04-21 07:35] LABS: SARS-CoV-2 Antigen Rapid Res Negative (Negative)
[2022-04-21] MEDS ORDERED: ACETAMINOPHEN 325 MG TABLET PO PRN (08:11)
[2022-04-21] MEDS ORDERED: NA CHLORIDE 0.9% 1,000 ML IV ONE (08:11)
[2022-04-21] MEDS: MORPHINE 2 MG/ML SYR IV PRN ×3 (08:30→23:08)
--- NOTE | 2022-04-21 08:35 | RAD REPORT ---
EXAM DESCRIPTION: RAD - Chest Single View - 04/21/2022 8:24 am CLINICAL HISTORY: Possible sepsis COMPARISON: None TECHNIQUE: AP portable chest image was obtained 04/21/2022 8:24 am . FINDINGS: No focal pneumonia identified. Interstitial pattern not outside of normal range. Bibasilar lung markings are slightly more prominent due to under penetrated portable technique and prominent o verlying soft tissues. No deana mass or lymphadenopathy seen. Heart and vasculature are normal. No measurable pleural effusio n and no pneumothorax. No acute bony abnormality seen. No acute aortic findings suspected. IMPRESSION: No acute cardiopulmonary process.
[2022-04-21] MEDS ORDERED: MORPHINE 2 MG/ML SYR ONE (08:36)
[2022-04-21] MEDS ORDERED: ACETAMINOPHEN 325 MG TABLET ONE (08:36)
[2022-04-21] MEDS ORDERED: ENOXAPARIN 40 MG/0.4 ML SQ ONE (08:37)
[2022-04-21] MEDS ORDERED: ONDANSETRON 4 MG/2 ML VIAL ONE (08:37)
[2022-04-21] MEDS ORDERED: NA CHLORIDE 0.9% 50 ML ONE (08:37)
[2022-04-21] MEDS: CEFTRIAXONE 1,000 MG in NA CHLORIDE 0.9% 50 ML IVPB SCH (09:00)
[2022-04-21] MEDS: ENOXAPARIN 40 MG/0.4 ML SQ SCH (09:00)
[2022-04-21 09:27] LABS: Protime INR 1.68
[2022-04-21 09:41] LABS: Albumin 3.1 g/dL (3.4-5.0); Bilirubin Direct 0.2 mg/dL (0-0.2); Bilirubin Total 0.6 mg/dL (0.2-1.0); Protein, Total 8.1 g/dL (6.4-8.2)
[2022-04-21 09:49] LABS: Potassium 3.2 mmol/L (3.5-5.1)
[2022-04-21 12:14] VITALS: O2SAT 100
[2022-04-21] MEDS ORDERED: POTASSIUM 25 MEQ EFFERV TAB PO ONE (13:00)
--- NOTE | 2022-04-21 13:31 | RAD REPORT ---
EXAM DESCRIPTION: CT - Abdomen Pelvis W Contrast - 04/21/2022 1:29 am CLINICAL HISTORY: Pyelonephritis COMPARISON: None Available. TECHNIQUE: CT of the abdomen and pelvis performed following IV administration of iodinated contras t. This exam was performed according to our departmental dose-optimization program, which includes au tomated exposure control, adjustment of the mA and/or kV according to patient size and/or use of iter ative reconstruction technique. FINDINGS: Lung Bases: The visualized lung bases are clear. Bones: No destructive bone lesions identified. Abdomen: Liver: The liver has normal size and density. Right hepatic hemangioma.. Gallbladder: No calcified gallstones. Spleen, Pancreas, and Adrenal Glands: The spleen, pancreas, and adrenal glands are unremarkable. Kidneys: No hydronephrosis or obstructing calculus. Small left cyst. Wedge-shaped hypodensities i n the left renal cortex with diffuse left perinephric fat stranding in the pelvic urothelial enhancem ent. Punctate nonobstructing right nephrolithiasis. Vasculature: The aorta and IVC have normal caliber and position. The portal vein is patent. The pro ximal visceral and renal arteries are patent. Stomach: The stomach and duodenum have normal course. Other: No free intraperitoneal air. Likely reactive left para-aortic lymph nodes. Tiny fat-contai jerson umbilical hernia. Pelvis: Bladder: Circumferential wall thickening of the urinary bladder. Bowel: No dilated loops of large or small bowel. Appendix: Normal appendix. Pelvis: Uterus is not enlarged. 2.1 cm right ovarian corpus luteal cyst. IMPRESSION: 1. Wedge-shaped hypodensities in the left renal cortex with diffuse left perinephric f at stranding and pelvic urothelial enhancement. Findings compatible with left pyelonephritis. 2. Circumferential wall thickening of the urinary bladder. This could be seen with cystitis. 3. 2.1 cm benign appearing right ovarian corpus luteal cyst. No follow-up imaging for this structur e recommended. Electronically signed by: Ronaldo Koroma 04/21/2022 12:38 AM CDT Due to temporary technical issues with the PACS/Fluency reporting system, reports are being signed by the in house radiologists without review as a courtesy to insure prompt reporting. The interpreting radiologist is fully responsible for the content of the report.
--- NOTE | 2022-04-21 14:39 | P.PN ---
Date of Service: 04/21/22 Patient seen and examined. She reports dysuria. She denies denies any flank pain. Had fever this morning up to 100.9. Also has severe leukocytosis. She flagged for sepsis this morning and was given 1 more liter normal saline. Lactate level checked this morning was normal. Diagnosis: Acute pyelonephritis Sepsis Plan: Continue IV Rocephin IV fluid. Follow cultures..
[2022-04-21] MEDS ORDERED: POTASSIUM CL SA 10 MEQ TAB PO ONE ×2 (20:00→20:11)
[2022-04-22] MEDS: MORPHINE 2 MG/ML SYR IV PRN (05:14)
[2022-04-22 05:45] LABS: Absolute Lymphocytes (CBC) 1.3 K/uL (0.7-4.9); Hematocrit 30.6 % (36.0-45.0); MCV 84.9 fL (80-100); MPV 8.2 fL (7.6-11.3); RBC Red Blood Cell Count 3.61 M/uL (3.86-4.86)
[2022-04-22 06:05] LABS: Magnesium 2.2 mg/dL (1.8-2.4); Phosphorus 1.9 mg/dL (2.5-4.9); Potassium 3.8 mmol/L (3.5-5.1)
[2022-04-22] MEDS ORDERED: POTASSIUM CL SA 10 MEQ TAB PO ONE (06:38)
[2022-04-22] MEDS ORDERED: POTASSIUM CL SA 10 MEQ TAB PO SCH (07:00)
[2022-04-22 08:03] VITALS: BP 107/53; TEMP 99.2
[2022-04-22] MEDS: NA CHLORIDE 0.9% 1,000 ML IV SCH (08:07)
[2022-04-22] MEDS: ENOXAPARIN 40 MG/0.4 ML SQ SCH (09:00)
[2022-04-22] MEDS: CEFTRIAXONE 1,000 MG in NA CHLORIDE 0.9% 50 ML IVPB SCH (09:16)
--- NOTE | 2022-04-22 10:49 | P.DS ---
Admission Date: 04/21/22 Discharge Date: 04/22/22 Disposition: ROUTINE DISCHARGE Discharge Condition: FAIR Reason for Admission: Pyelonephritis - Problems (1) Sepsis Status: Acute (2) Pyelonephritis Status: Acute Brief History of Present Illness: Patient is a 36 year-old female who presented to the ED with complaints of UTI symptoms x 5 days. Labs were significant for WBC 26.2, neutrophils, 87 segs, 3 bands, urine + for UTI, sodium 132, potassium 3.4. CT abd/pelv showed "wedge shaped hypodensities in the left renal cortex with diffuse left perinephritic fat stranding and pelvic urothelial enhancement. Circumfrential wall thickening of the urinary bladder. 2.1 benign appearing right ovarian corpus luteal cyst." She was given 1L fluid, morphine, zofran, rocephin, and levaquin in the ED. Patient is admitted for further evaluation of acute pyelonephritis. Hospital Course: Patient admitted to the medical floor and treated with IV Rocephin. Her symptoms significantly improved with treatment. Leukocytosis resolved. She initially had fever but this also resolved with treatment. She is up and ambul ating and tolerating diet. Urine culture is pending. Patient is discharged with oral cefpodoxime to continue treatment for acute pyelonephritis. She is informed to follow-up with his PCP within 1 to 2 weeks. Vital Signs/Physical Exam: Temp Pulse Resp BP Pulse Ox 99.2 F 83 17 107/53 L 100 04/22/22 08:00 04/22/22 08:00 04/22/22 08:00 04/22/22 08:00 04/22/22 08:00 General: Alert, In no apparent distress, Oriented x3 HEENT: Mucous membr. moist/pink Neck: JVD not distended Respiratory: Clear to auscultation bilaterally, Normal air movement Cardiovascular: No edema, Regular rate/rhythm, Normal S1 S2 Gastrointestinal: Normal bowel sounds, Soft and benign, Non-distended, No tenderness Musculoskeletal: No swelling Integumentary: No rashes Neurological: Normal strength at 5/5 x4 extr Laboratory Data at Discharge: WBC 10.90 K/uL (4.3-10.9) D 04/22/22 05:07 Hgb 10.6 g/dL (12.0-15.0) L 04/22/22 05:07 Hct 30.6 % (36.0-45.0) L D 04/22/22 05:07 Plt Count 200 K/uL (152-406) D 04/22/22 05:07 PT 18.7 SECONDS (9.5-12.5) H 04/21/22 08:37 INR 1.68 04/21/22 08:37 APTT 35.6 SECONDS (24.3-36.9) 04/21/22 08:37 Sodium 137 mmol/L (136-145) 04/22/22 05:07 Potassium 3.8 mmol/L (3.5-5.1) 04/22/22 05:07 BUN 5 mg/dL (7-18) L 04/22/22 05:07 Creatinine 0.56 mg/dL (0.55-1.3) 04/22/22 05:07 Glucose 94 mg/dL (74-106) 04/22/22 05:07 Phosphorus 1.9 mg/dL (2.5-4.9) L 04/22/22 05:07 Magnesium 2.2 mg/dL (1.8-2.4) 04/22/22 05:07 Total Bilirubin 0.6 mg/dL (0.2-1.0) 04/21/22 08:37 AST 19 U/L (15-37) 04/21/22 08:37 ALT 20 U/L (12-78) 04/21/22 08:37 Alkaline Phosphatase 79 U/L (45-117) 04/21/22 08:37 Amylase 20 U/L (25-115) L 04/21/22 08:37 Lipase 69 U/L (73-393) L 04/21/22 08:37 Home Medications: Cefpodoxime Proxetil [Vantin] 200 mg PO BID #14 tab 04/22/22 Codeine/APAP [Tylenol W/Codeine #3 tab] 1 tab PO Q6HP PRN #15 tab 04/22/22 New Medications: Codeine/APAP [Tylenol W/Codeine #3 tab] 1 tab PO Q6HP PRN #15 tab PRN Reason: Pain Cefpodoxime Proxetil [Vantin] 200 mg PO BID #14 tab Diet: Regular Activity: Ad rhiannon Followup: NONE,NONE [Primary Care Provider] - 1-2 Weeks Time spent managing pt's care (in minutes): 38
== END 2022-04-22 11:40 | disposition home or self-care (01) | DRG 872 ==
LOC: ER 21:49 → ERHOLD 04-21 02:52 → 2ND-WC 04-21 11:26
PROVIDERS: ADMIT Internal Medicine; ATTEND Internal Medicine
DX: A41.9 Sepsis, unspecified organism (principal); N10 Acute pyelonephritis; F32.A Depression, unspecified; G47.00 Insomnia, unspecified; E87.6 Hypokalemia; N83.11 Corpus luteum cyst of right ovary; Z20.822 Contact with and (suspected) exposure to COVID-19
CPT/HCPCS: 36415; 71045; 74177; 80048; 80053; 81003; 81015; 81025; 82150; 82248; 83605; 83690; 83735; 84100; 84132; 85025; 85610; 85730; 87040; 87077; 87086; 87088; 87186; 87811; 96361; 96365; 96375; 99284; J1650; J2270; J2405; J7030; Q9967